=== PATIENT | male | born 1990 | race Two or more races ===

== ENCOUNTER 2016-12-15 01:18 | Emergency (ER) | payer OTHER ==
[~2016-12-15] VITALS: Ht 172.7 cm; Wt 81.6 kg
--- NOTE | 2016-12-15 01:27 | NUR ---
Pt BIB [employer], NEEDS OK TO BOOK. Pt C/O LEFT WRIST PAIN [id number]. WAITING IN ER BED 3. NO S/S OF ACUTE DISTRESS OR SOB NOTED. VS STABLE AT THIS TIME.
--- NOTE | 2016-12-15 01:48 | NUR ---
XR OF LT ARM BEING DONE AT BEDSIDE
[2016-12-15 02:12] VITALS: BP 116/72
--- NOTE | 2016-12-15 02:13 | NUR ---
Patient discharged to home in stable condition. Written and verbal after care instructions given. Patient verbalizes understanding of instruction. PT ambulatory with a steady gait
== END 2016-12-15 02:13 ==
LOC: ER 01:21
DX: S60.812A Abrasion of left wrist, initial encounter (principal); W18.30XA Fall on same level, unspecified, initial encounter; Y93.89 Activity, other specified; Y92.89 Other specified places as the place of occurrence of the external cause; Y99.9 Unspecified external cause status
CPT/HCPCS: 73090; 99284; A4606; Z7610